=== PATIENT | female | born 1945 | race Caucasian/White ===

== ENCOUNTER 2023-01-13 15:23 | Inpatient (IN) | payer OTHER ==
[2023-01-13] MEDS ORDERED: SODIUM CHLORIDE 1,000 ML IV STA ×2 (16:05→18:13)
[2023-01-13] MEDS ORDERED: ACETAMINOPHEN 1000 MG/100 ML BAG IVPB ONE ×2 (16:18→22:15)
[2023-01-13] MEDS ORDERED: ACETAMINOPHEN INJECTION 100 ML IVPB ONE ×2 (16:26→22:38)
[2023-01-13 16:50] LABS: VENOUS BASE EXCESS -1.4 mmol/L (-2-2); VENOUS O2 SATURATION 16.6 % (70-80); VENOUS PCO2 35.8 mmHg (38-52); VENOUS PH 7.417 (7.310-7.410)
[2023-01-13 17:01] LABS: EOS % 0.1 % (0-4.5); HEMATOCRIT 40.3 % (32.4-45.2); HEMOGLOBIN 13.5 GM/dL (10.7-15.3); LYMPH % 4.7 % (8-40); MCH 27.3 pg (25.7-33.7); MCHC 33.4 g/dl (32.0-36.0); MEAN CELL VOLUME 81.9 fl (80-96); MONO % 1.6 % (3.8-10.2); NEUT % 93.6 % (42.8-82.8); RBC 4.92 M/mm3 (3.60-5.2); RDW 13.6 % (11.6-15.6); WHITE BLOOD COUNT 3.6 K/mm3 (4.0-10.0)
[2023-01-13 17:02] LABS: INR 1.04 (0.83-1.09); PROTHROMBIN TIME (PATIENT) 12.1 SEC (9.7-13.0)
[2023-01-13 17:05] LABS: ACTIVATED PTT 27.7 SECONDS (25.2-36.5)
[2023-01-13 17:13] LABS: CHLORIDE 100 mmol/L (98-107); POTASSIUM 4.2 mmol/L (3.5-5.1); SODIUM 134 mmol/L (136-145)
[2023-01-13 17:16] LABS: ALBUMIN 3.4 g/dl (3.4-5.0); ANION GAP 10 MMOL/L (8-16); BLOOD UREA NITROGEN 26.3 mg/dL (7-18); CO2 23 mmol/L (21-32); GLUCOSE,RANDOM 118 mg/dL (74-106)
[2023-01-13 17:18] LABS: CREATININE 1.4 mg/dL (0.55-1.3); SGPT/ALT 418 U/L (13-61)
[2023-01-13 17:21] LABS: BILIRUBIN,TOTAL 1.1 mg/dL (0.2-1); TOT PROT 7.3 g/dl (6.4-8.2)
[2023-01-13 17:22] LABS: ALK PHOS 79 U/L (45-117)
[2023-01-13 17:25] LABS: LACTIC ACID 2.4 mmol/L (0.4-2.0)
[2023-01-13 17:26] LABS: MEAN PLT VOLUME 10.5 fl (7.5-11.1); PLATELET COUNT 60 10^3/uL (134-434)
[2023-01-13 17:28] LABS: SGOT/AST 1063 U/L (15-37)
[2023-01-13] MEDS ORDERED: PIPERACILLIN/TAZOB 3.375 GM 3.375 GM in DEXTROSE 5%-WATER - 50 ML IVPB ONE (17:29)
[2023-01-13] MEDS ORDERED: VANCOMYCIN 1 GM in D5W (PRE-DOCKED) 1,000 MG/250 ML (RESTRICTED TO ID ONLY IVPB ONE (17:29)
[2023-01-13] MEDS ORDERED: VANCOMYCIN/WATER FOR INJ (PEG) 1,000 MG/200 ML BAG IVPB ONE (17:44)
[2023-01-13] MEDS ORDERED: PIPERACILLIN/TAZOB 3.375 GM 3.375 GM/50 ML BAG IVPB ONE (17:44)
[2023-01-13 19:37] LABS: EPI CELLS 17 /uL (0-25.1); HYALINE CASTS 1 /uL (0-3.1); URINE APPEARANCE CLOUDY; URINE BACTERIA 5279 /uL (0-1359); URINE BILIRUBIN 1+ (NEGATIVE); URINE COLOR DK YELLOW; URINE GLUCOSE (UA) NEGATIVE (NEGATIVE); URINE KETONE 1+ (NEGATIVE); URINE LEUK ESTERASE TRACE (NEGATIVE); URINE NITRITE POSITIVE (NEGATIVE); URINE PROTEIN 3+ (NEGATIVE); URINE WBC 41 /uL (0-25.8); YEAST REVIEW (NEGATIVE)
[2023-01-13 20:18] LABS: URINE RBC 23.6 /uL (0-23.9)
[2023-01-13] MEDS ORDERED: LACTATED RINGERS SOLUTION 1000 ML INFUS.BAG IV ONE (22:06)
[2023-01-13 22:54] LABS: CHLORIDE 105 mmol/L (98-107); POTASSIUM 3.2 mmol/L (3.5-5.1); SODIUM 138 mmol/L (136-145)
[2023-01-13 23:44] LABS: ALBUMIN 2.8 g/dl (3.4-5.0); ALK PHOS 65 U/L (45-117); ANION GAP 13 MMOL/L (8-16); BLOOD UREA NITROGEN 25.9 mg/dL (7-18); CALCIUM 7.7 mg/dL (8.5-10.1); CO2 20 mmol/L (21-32); CREATININE 1.3 mg/dL (0.55-1.3); GLUCOSE,RANDOM 106 mg/dL (74-106); SGOT/AST 952 U/L (15-37); SGPT/ALT 346 U/L (13-61)
[2023-01-14] MEDS ORDERED: ACETAMINOPHEN 1000 MG/100 ML BAG IVPB PRN (00:13)
[2023-01-14] MEDS ORDERED: SODIUM CHLORIDE 1,000 ML IV SCH ×2 (00:15→01:07)
[2023-01-14] MEDS: KCL 10 MEQ IVPB 10 MEQ/100 ML INFUS.BAG IVPB SCH ×2 (02:53→04:36)
[2023-01-14] MEDS ORDERED: traMADol HCL 50 MG TABLET PO PRN (04:49)
[2023-01-14] MEDS ORDERED: PIPERACILLIN/TAZOB 3.375 GM 3.375 GM in DEXTROSE 5%-WATER - 50 ML IVPB ONE (09:04)
[2023-01-14] MEDS ORDERED: VANCOMYCIN 1 GM/200 ML PREMIX BAG (RESTRICTED TO ID ONLY) IVPB ONE (09:05)
[2023-01-14] MEDS: ACETAMINOPHEN 325 MG TABLET (FP) PO PRN (09:11)
[2023-01-14] MEDS ORDERED: LACTATED RINGERS SOLUTION 1000 ML INFUS.BAG IV ONE (09:15)
[2023-01-14] MEDS ORDERED: CEFTRIAXONE 1 GM in DEXTROSE 5%-WATER - 50 ML IVPB SCH (10:00)
[2023-01-14] MEDS ORDERED: ENOXAPARIN NA (PORCINE) 40 MG/0.4 ML DISP.SYRIN SQ SCH (10:00)
[2023-01-14 10:22] LABS: CHLORIDE 109 mmol/L (98-107); POTASSIUM 3.9 mmol/L (3.5-5.1); SODIUM 139 mmol/L (136-145)
[2023-01-14 10:26] LABS: CALCIUM 8.3 mg/dL (8.5-10.1)
[2023-01-14 10:28] LABS: ALBUMIN 2.6 g/dl (3.4-5.0); ANION GAP 12 MMOL/L (8-16); BLOOD UREA NITROGEN 22.4 mg/dL (7-18); CO2 18 mmol/L (21-32); GLUCOSE,RANDOM 79 mg/dL (74-106)
[2023-01-14 10:29] LABS: SGPT/ALT 341 U/L (13-61)
[2023-01-14 10:30] LABS: ALK PHOS 75 U/L (45-117); BILIRUBIN,TOTAL 1.3 mg/dL (0.2-1); SGOT/AST 973 U/L (15-37); TOT PROT 5.8 g/dl (6.4-8.2)
[2023-01-14] MEDS ORDERED: IBUPROFEN 600 MG TABLET (FP) PO ONE (10:54)
[2023-01-14] MEDS: LACTATED RINGERS SOLUTION 1,000 ML/1,000 ML INFUS.BAG IV SCH (11:41)
[2023-01-14 12:08] LABS: BASO % 0.1 % (0-2.0); EOS % 0.8 % (0-4.5); HEMATOCRIT 33.3 % (32.4-45.2); HEMOGLOBIN 10.9 GM/dL (10.7-15.3); LYMPH % 6.8 % (8-40); MCH 26.9 pg (25.7-33.7); MCHC 32.9 g/dl (32.0-36.0); MEAN PLT VOLUME 10.2 fl (7.5-11.1); MONO % 1.8 % (3.8-10.2); NEUT % 90.5 % (42.8-82.8); RBC 4.06 M/mm3 (3.60-5.2); RDW 13.7 % (11.6-15.6)
[2023-01-14 12:22] LABS: WHITE BLOOD COUNT 1.8 K/mm3 (4.0-10.0)
[2023-01-14 12:23] LABS: PLATELET COUNT 32 10^3/uL (134-434)
[2023-01-14] MEDS: DOXYCYCLINE INJECTION 100 MG in DEXTROSE 5%-WATER 100 ML IVPB SCH ×2 (13:13→21:21)
[2023-01-14 13:23] LABS: ANISOCYTOSIS 0; HELMET CELLS 0; HOWELL-JOLLY BODIES 0; MACROCYTOSIS 0; OVALOCYTE 0; ROULEAU 0; SICKELED CELLS 0; TARGET CELLS 0; TEAR DROP CELLS 0; TOXIC GRANULATION 0
[2023-01-14 13:46] LABS: INR 1.25 (0.83-1.09); PROTHROMBIN TIME (PATIENT) 14.5 SEC (9.7-13.0)
[2023-01-14 13:48] LABS: ACTIVATED PTT 29.5 SECONDS (25.2-36.5)
[2023-01-14 14:49] LABS: LDH > 1000 U/L (84-246)
[2023-01-14] MEDS: PIPERACILLIN/TAZOB 4.5 GM 4.5 GM in DEXTROSE 5%-WATER 100 ML IVPB SCH (17:59)
[2023-01-15] MEDS: VANCOMYCIN/WATER FOR INJ (PEG) 1,000 MG/200 ML BAG IVPB SCH ×2 (00:44→10:54)
[2023-01-15] MEDS: PIPERACILLIN/TAZOB 4.5 GM 4.5 GM in DEXTROSE 5%-WATER 100 ML IVPB SCH ×3 (03:10→17:12)
[2023-01-15] MEDS: KCL 10 MEQ IVPB 10 MEQ/100 ML INFUS.BAG IVPB SCH (08:01)
[2023-01-15] MEDS ORDERED: MELATONIN 5 MG TABLETS PO PRN (08:40)
[2023-01-15 08:57] LABS: HEMATOCRIT 37.8 % (32.4-45.2); HEMOGLOBIN 12.3 GM/dL (10.7-15.3); MCH 26.8 pg (25.7-33.7); MCHC 32.6 g/dl (32.0-36.0); MEAN CELL VOLUME 82.3 fl (80-96); MEAN PLT VOLUME 11.6 fl (7.5-11.1); RBC 4.59 M/mm3 (3.60-5.2); WHITE BLOOD COUNT 3.4 K/mm3 (4.0-10.0)
[2023-01-15 09:18] LABS: CHLORIDE 112 mmol/L (98-107); POTASSIUM 3.9 mmol/L (3.5-5.1); SODIUM 141 mmol/L (136-145)
[2023-01-15 09:22] LABS: ANION GAP 11 MMOL/L (8-16); CALCIUM 8.3 mg/dL (8.5-10.1); CO2 19 mmol/L (21-32); MAGNESIUM 1.8 mg/dL (1.8-2.4)
[2023-01-15 09:23] LABS: GLUCOSE,RANDOM 97 mg/dL (74-106)
[2023-01-15 09:25] LABS: BILIRUBIN,DIRECT 0.8 mg/dL (0.0-0.2); BLOOD UREA NITROGEN 24.4 mg/dL (7-18); CREATININE 0.9 mg/dL (0.55-1.3); PHOSPHOROUS 1.9 mg/dL (2.5-4.9); SGOT/AST 733 U/L (15-37); SGPT/ALT 272 U/L (13-61)
[2023-01-15 09:29] LABS: BILIRUBIN,TOTAL 1.2 mg/dL (0.2-1); TOT PROT 5.2 g/dl (6.4-8.2)
[2023-01-15 09:32] LABS: ALK PHOS 88 U/L (45-117)
[2023-01-15] MEDS: DOXYCYCLINE INJECTION 100 MG in DEXTROSE 5%-WATER 100 ML IVPB SCH ×2 (09:48→22:40)
[2023-01-15 10:30] LABS: ANISOCYTOSIS 0; HELMET CELLS 0; HOWELL-JOLLY BODIES 0; MACROCYTOSIS 0; OVALOCYTE 0; ROULEAU 0; SICKELED CELLS 0; TARGET CELLS 0; TEAR DROP CELLS 0; TOXIC GRANULATION 0
[2023-01-15 11:03] LABS: PLATELET COUNT 26 10^3/uL (134-434)
[2023-01-15] MEDS: LACTATED RINGERS SOLUTION 1,000 ML/1,000 ML INFUS.BAG IV SCH ×2 (11:30→13:53)
[2023-01-15] MEDS ORDERED: NAPH,MB-DB/K PH,MBDB POWDER PACKET PO ONE (14:36)
[2023-01-15] MEDS ORDERED: FUROSEMIDE 40 MG/4 ML INJECTABLE VIAL IVPUSH ONE (22:23)
[2023-01-15 22:31] LABS: ALLENS TEST POSITIVE; ARTERIAL BLD GAS O2 SATURATION 91.6 % (95-98); ARTERIAL BLOOD GAS BASE EXCESS -6.5 mmol/L (-2-2); ARTERIAL BLOOD GAS PO2 63.7 mmHg (80-100)
[2023-01-15 23:45] LABS: N-TERMINAL BNP 4253.8 pg/ml (5-450)
[2023-01-16] MEDS: PIPERACILLIN/TAZOB 4.5 GM 4.5 GM in DEXTROSE 5%-WATER 100 ML IVPB SCH ×2 (03:00→09:32)
[2023-01-16] MEDS ORDERED: FUROSEMIDE 40 MG/4 ML INJECTABLE VIAL IVPUSH ONE ×2 (04:00→12:52)
[2023-01-16 09:21] LABS: CHLORIDE 104 mmol/L (98-107); SODIUM 142 mmol/L (136-145)
[2023-01-16 09:22] LABS: HEMATOCRIT 37.1 % (32.4-45.2); HEMOGLOBIN 12.6 GM/dL (10.7-15.3); MCH 27.1 pg (25.7-33.7); MCHC 33.9 g/dl (32.0-36.0); MEAN PLT VOLUME 11.6 fl (7.5-11.1); RBC 4.64 M/mm3 (3.60-5.2); RDW 14.4 % (11.6-15.6); WHITE BLOOD COUNT 8.1 K/mm3 (4.0-10.0)
[2023-01-16 09:27] LABS: ALBUMIN 2.2 g/dl (3.4-5.0)
[2023-01-16 09:28] LABS: CALCIUM 8.4 mg/dL (8.5-10.1)
[2023-01-16 09:29] LABS: BLOOD UREA NITROGEN 27.3 mg/dL (7-18); CO2 24 mmol/L (21-32); GLUCOSE,RANDOM 135 mg/dL (74-106); MAGNESIUM 1.7 mg/dL (1.8-2.4)
[2023-01-16 09:33] LABS: ALK PHOS 101 U/L (45-117); CREATININE 1.1 mg/dL (0.55-1.3); SGOT/AST 665 U/L (15-37); TOT PROT 5.4 g/dl (6.4-8.2)
[2023-01-16 09:34] LABS: N-TERMINAL BNP 21475.7 pg/ml (5-450)
[2023-01-16 09:35] LABS: PHOSPHOROUS 3.3 mg/dL (2.5-4.9); SGPT/ALT 258 U/L (13-61)
[2023-01-16 09:37] LABS: BILIRUBIN,TOTAL 1.2 mg/dL (0.2-1)
[2023-01-16 09:42] LABS: ANION GAP 14 MMOL/L (8-16); POTASSIUM 2.7 mmol/L (3.5-5.1)
[2023-01-16] MEDS ORDERED: MAGNESIUM SULF 50% (8.12 MEQ/2 ML-1 GM VIAL) IVPB ONE (10:04)
[2023-01-16] MEDS ORDERED: POTASSIUM CHLORIDE ORAL LIQUID 20 MEQ/15 ML PO ONE ×2 (10:05→13:00)
[2023-01-16] MEDS: DOXYCYCLINE INJECTION 100 MG in DEXTROSE 5%-WATER 100 ML IVPB SCH ×2 (10:35→21:14)
[2023-01-16 12:34] LABS: ANISOCYTOSIS 2+; MACROCYTOSIS 2+; OVALOCYTE 2+; TEAR DROP CELLS 1+
[2023-01-16 12:35] LABS: PLATELET ESTIMATE MOD DECREASED
[2023-01-16] MEDS ORDERED: LACTATED RINGERS SOLUTION 1,000 ML/1,000 ML INFUS.BAG IV SCH ×2 (12:45)
[2023-01-16 14:59] LABS: PLATELET COUNT 26 10^3/uL (134-434)
[2023-01-16] MEDS: CEFAZOLIN SODIUM 2 GM in DEXTROSE 5%-WATER 100 ML IVPB SCH (17:50)
[2023-01-17] MEDS: ACETAMINOPHEN 325 MG TABLET (FP) PO PRN (00:24)
[2023-01-17] MEDS: CEFAZOLIN SODIUM 2 GM in DEXTROSE 5%-WATER 100 ML IVPB SCH ×3 (01:03→17:16)
[2023-01-17 04:32] LABS: ARTERIAL BLD GAS O2 SATURATION 95.8 % (95-98); ARTERIAL BLOOD GAS BASE EXCESS 2.2 mmol/L (-2-2); ARTERIAL BLOOD GAS PO2 69.8 mmHg (80-100); ARTERIAL BLOOD GAS pH 7.526 (7.350-7.450)
[2023-01-17 04:37] LABS: ALLENS TEST POSITIVE
[2023-01-17] MEDS: MUPIROCIN 2% TOPICAL OINTMENT FOR DECOLONIZATION NS SCH ×2 (10:27→21:52)
[2023-01-17] MEDS: DOXYCYCLINE INJECTION 100 MG in DEXTROSE 5%-WATER 100 ML IVPB SCH ×2 (10:27→21:51)
[2023-01-17] MEDS ORDERED: SODIUM CHLORIDE 250 ML IV STA ×2 (14:49→16:45)
[2023-01-17] MEDS ORDERED: PANTOPRAZOLE SODIUM 40 MG VIAL IVPUSH ONE (15:58)
[2023-01-17] MEDS ORDERED: PANTOPRAZOLE SODIUM 80 MG in SODIUM CHLORIDE 100 ML IVPB SCH (16:00)
[2023-01-17 16:43] LABS: BASO % 0.3 % (0-2.0); EOS % 0.3 % (0-4.5); HEMOGLOBIN 7.2 GM/dL (10.7-15.3); LYMPH % 31.1 % (8-40); MCH 26.1 pg (25.7-33.7); MCHC 32.9 g/dl (32.0-36.0); MEAN CELL VOLUME 79.3 fl (80-96); MEAN PLT VOLUME 12.2 fl (7.5-11.1); MONO % 7.8 % (3.8-10.2); NEUT % 60.5 % (42.8-82.8); RBC 2.78 M/mm3 (3.60-5.2); RDW 14.3 % (11.6-15.6); WHITE BLOOD COUNT 11.4 K/mm3 (4.0-10.0)
[2023-01-17 16:56] LABS: INR 0.96 (0.83-1.09); PLATELET COUNT 32 10^3/uL (134-434); PROTHROMBIN TIME (PATIENT) 11.1 SEC (9.7-13.0)
[2023-01-17 16:59] LABS: ACTIVATED PTT 21.8 SECONDS (25.2-36.5)
[2023-01-17 17:17] LABS: ALBUMIN 1.9 g/dl (3.4-5.0); CALCIUM 7.8 mg/dL (8.5-10.1)
[2023-01-17 17:18] LABS: BLOOD UREA NITROGEN 49.8 mg/dL (7-18); MAGNESIUM 2.1 mg/dL (1.8-2.4)
[2023-01-17 17:20] LABS: PHOSPHOROUS 2.1 mg/dL (2.5-4.9)
[2023-01-17 17:21] LABS: CREATININE 1.1 mg/dL (0.55-1.3)
[2023-01-17 17:22] LABS: BILIRUBIN,TOTAL 0.8 mg/dL (0.2-1); TOT PROT 4.7 g/dl (6.4-8.2)
[2023-01-17] MEDS ORDERED: POTASSIUM CHLORIDE ORAL LIQUID 20 MEQ/15 ML PO ONE (17:22)
[2023-01-17] MEDS: PANTOPRAZOLE SODIUM 160 MG in SODIUM CHLORIDE 290 ML IVPB SCH (19:39)
[2023-01-17] MEDS: CHLORHEXIDINE GLUCONATE 4% CLEANSER FOR DECOLONIZATION TP SCH (21:51)
[2023-01-18] MEDS: CEFAZOLIN SODIUM 2 GM in DEXTROSE 5%-WATER 100 ML IVPB SCH ×3 (02:14→18:55)
[2023-01-18 04:20] LABS: BASO % 0.5 % (0-2.0); EOS % 0.3 % (0-4.5); HEMATOCRIT 23.8 % (32.4-45.2); LYMPH % 36.4 % (8-40); MCH 27.5 pg (25.7-33.7); MCHC 33.6 g/dl (32.0-36.0); MEAN CELL VOLUME 81.8 fl (80-96); MEAN PLT VOLUME 9.7 fl (7.5-11.1); MONO % 6.1 % (3.8-10.2); NEUT % 56.7 % (42.8-82.8); PLATELET COUNT 106 10^3/uL (134-434); RBC 2.91 M/mm3 (3.60-5.2); WHITE BLOOD COUNT 12.5 K/mm3 (4.0-10.0)
[2023-01-18 04:41] LABS: POTASSIUM 3.6 mmol/L (3.5-5.1)
[2023-01-18 04:43] LABS: CALCIUM 8.3 mg/dL (8.5-10.1)
[2023-01-18 04:44] LABS: ALBUMIN 2.1 g/dl (3.4-5.0); BLOOD UREA NITROGEN 38.8 mg/dL (7-18)
[2023-01-18 04:46] LABS: PHOSPHOROUS 1.8 mg/dL (2.5-4.9)
[2023-01-18 04:48] LABS: BILIRUBIN,TOTAL 0.8 mg/dL (0.2-1)
[2023-01-18] MEDS ORDERED: SODIUM CHLORIDE 250 ML IV STA (08:39)
[2023-01-18] MEDS ORDERED: POTASSIUM PHOSPHATE 30 MM in SODIUM CHLORIDE 250 ML IVPB ONE (09:00)
[2023-01-18] MEDS: LACTOBACILLUS ACIDOPHILUS 1 TABLET PO SCH (10:45)
[2023-01-18] MEDS: DOXYCYCLINE INJECTION 100 MG in DEXTROSE 5%-WATER 100 ML IVPB SCH ×2 (10:45→22:01)
[2023-01-18] MEDS: MUPIROCIN 2% TOPICAL OINTMENT FOR DECOLONIZATION NS SCH ×2 (10:46→22:02)
[2023-01-18] MEDS: ASCORBIC ACID 500 MG TABLET (FP) PO SCH ×2 (10:46→21:58)
[2023-01-18 15:06] LABS: EOS % 0.3 % (0-4.5); HEMATOCRIT 22.6 % (32.4-45.2); HEMOGLOBIN 7.4 GM/dL (10.7-15.3); LYMPH % 49.5 % (8-40); MCH 27.3 pg (25.7-33.7); MCHC 32.7 g/dl (32.0-36.0); MEAN CELL VOLUME 83.6 fl (80-96); MEAN PLT VOLUME 10.8 fl (7.5-11.1); MONO % 6.3 % (3.8-10.2); NEUT % 42.9 % (42.8-82.8); PLATELET COUNT 101 10^3/uL (134-434); RDW 14.5 % (11.6-15.6); WHITE BLOOD COUNT 14.3 K/mm3 (4.0-10.0)
[2023-01-18] MEDS: PANTOPRAZOLE SODIUM 160 MG in SODIUM CHLORIDE 290 ML IVPB SCH (15:56)
[2023-01-18] MEDS: MELATONIN 5 MG TABLETS PO PRN (21:59)
[2023-01-18] MEDS: CHLORHEXIDINE GLUCONATE 4% CLEANSER FOR DECOLONIZATION TP SCH (22:01)
[2023-01-19 00:36] LABS: HEMATOCRIT 20.2 % (32.4-45.2); MCH 27.8 pg (25.7-33.7); MCHC 33.7 g/dl (32.0-36.0); MEAN CELL VOLUME 82.5 fl (80-96); MEAN PLT VOLUME 10.3 fl (7.5-11.1); PLATELET COUNT 108 10^3/uL (134-434); RBC 2.45 M/mm3 (3.60-5.2); RDW 14.8 % (11.6-15.6); WHITE BLOOD COUNT 13.9 K/mm3 (4.0-10.0)
[2023-01-19 00:43] LABS: HEMOGLOBIN 6.8 GM/dL (10.7-15.3)
[2023-01-19] MEDS: CEFAZOLIN SODIUM 2 GM in DEXTROSE 5%-WATER 100 ML IVPB SCH ×3 (02:19→17:55)
[2023-01-19 09:29] LABS: ANISOCYTOSIS 3+; MACROCYTOSIS 0
[2023-01-19] MEDS: ASCORBIC ACID 500 MG TABLET (FP) PO SCH ×2 (10:24→21:16)
[2023-01-19] MEDS: LACTOBACILLUS ACIDOPHILUS 1 TABLET PO SCH (10:24)
[2023-01-19] MEDS: DOXYCYCLINE INJECTION 100 MG in DEXTROSE 5%-WATER 100 ML IVPB SCH ×2 (10:25→21:13)
[2023-01-19] MEDS: MUPIROCIN 2% TOPICAL OINTMENT FOR DECOLONIZATION NS SCH ×2 (10:26→21:13)
[2023-01-19] MEDS ORDERED: SODIUM CHLORIDE 250 ML IV STA (11:53)
[2023-01-19 13:16] LABS: HEMATOCRIT 26.8 % (32.4-45.2); MCH 27.4 pg (25.7-33.7); MCHC 33.6 g/dl (32.0-36.0); MEAN CELL VOLUME 81.4 fl (80-96); MEAN PLT VOLUME 10.7 fl (7.5-11.1); PLATELET COUNT 120 10^3/uL (134-434); RBC 3.29 M/mm3 (3.60-5.2); RDW 14.6 % (11.6-15.6); WHITE BLOOD COUNT 14.7 K/mm3 (4.0-10.0)
[2023-01-19 14:43] LABS: POTASSIUM 3.8 mmol/L (3.5-5.1)
[2023-01-19 14:45] LABS: CALCIUM 8.2 mg/dL (8.5-10.1)
[2023-01-19 14:46] LABS: ALBUMIN 2.2 g/dl (3.4-5.0); BLOOD UREA NITROGEN 24.6 mg/dL (7-18); MAGNESIUM 2.1 mg/dL (1.8-2.4)
[2023-01-19 14:49] LABS: CREATININE 0.8 mg/dL (0.55-1.3); PHOSPHOROUS 2.7 mg/dL (2.5-4.9)
[2023-01-19 14:50] LABS: TOT PROT 5.1 g/dl (6.4-8.2)
[2023-01-19 14:51] LABS: BILIRUBIN,TOTAL 0.6 mg/dL (0.2-1)
[2023-01-19 15:13] LABS: ANISOCYTOSIS 0; MACROCYTOSIS 0
[2023-01-19 16:04] VITALS: BMI 20.3
[2023-01-19] MEDS: PANTOPRAZOLE SODIUM 160 MG in SODIUM CHLORIDE 290 ML IVPB SCH (17:19)
[2023-01-19] MEDS: CHLORHEXIDINE GLUCONATE 4% CLEANSER FOR DECOLONIZATION TP SCH (21:13)
[2023-01-19] MEDS: MELATONIN 5 MG TABLETS PO PRN (21:19)
[2023-01-19] MEDS ORDERED: QUEtiapine FUMARATE 25 MG TABLET PO ONE (23:09)
[2023-01-20] MEDS: CEFAZOLIN SODIUM 2 GM in DEXTROSE 5%-WATER 100 ML IVPB SCH ×3 (03:52→17:27)
[2023-01-20] MEDS: LACTOBACILLUS ACIDOPHILUS 1 TABLET PO SCH (11:52)
[2023-01-20] MEDS: ASCORBIC ACID 500 MG TABLET (FP) PO SCH ×2 (11:52→21:34)
[2023-01-20] MEDS: DOXYCYCLINE INJECTION 100 MG in DEXTROSE 5%-WATER 100 ML IVPB SCH ×2 (12:38→21:34)
[2023-01-20] MEDS: SODIUM CHLORIDE 1,000 ML IV SCH (20:00)
[2023-01-20] MEDS: PANTOPRAZOLE 40 MG TABLET PO SCH (21:33)
[2023-01-20] MEDS: MELATONIN 5 MG TABLETS PO PRN ×2 (21:38→22:00)
[2023-01-20] MEDS ORDERED: MELATONIN 5 MG TABLETS PO ONE ×2 (21:50)
[2023-01-20] MEDS ORDERED: LORazepam 0.5 MG TABLET PO ONE (23:53)
[2023-01-21] MEDS: CEFAZOLIN SODIUM 2 GM in DEXTROSE 5%-WATER 100 ML IVPB SCH ×2 (01:51→09:47)
[2023-01-21] MEDS: PANTOPRAZOLE SODIUM 160 MG in SODIUM CHLORIDE 290 ML IVPB SCH (08:19)
[2023-01-21] MEDS: PANTOPRAZOLE 40 MG TABLET PO SCH ×2 (09:47→21:55)
[2023-01-21] MEDS: ASCORBIC ACID 500 MG TABLET (FP) PO SCH ×2 (09:47→21:55)
[2023-01-21] MEDS: LACTOBACILLUS ACIDOPHILUS 1 TABLET PO SCH (09:47)
[2023-01-21] MEDS: DOXYCYCLINE INJECTION 100 MG in DEXTROSE 5%-WATER 100 ML IVPB SCH ×2 (10:06→21:55)
[2023-01-21] MEDS: MELATONIN 5 MG TABLETS PO PRN (21:55)
[2023-01-21] MEDS: SODIUM CHLORIDE 1,000 ML IV SCH (21:57)
[2023-01-21] MEDS ORDERED: LORazepam 0.5 MG TABLET PO ONE (22:56)
[2023-01-22] MEDS: DOXYCYCLINE INJECTION 100 MG in DEXTROSE 5%-WATER 100 ML IVPB SCH ×2 (10:28→22:12)
[2023-01-22] MEDS: LACTOBACILLUS ACIDOPHILUS 1 TABLET PO SCH (10:29)
[2023-01-22] MEDS: PANTOPRAZOLE 40 MG TABLET PO SCH ×2 (10:29→22:12)
[2023-01-22] MEDS: ASCORBIC ACID 500 MG TABLET (FP) PO SCH ×2 (10:29→22:12)
[2023-01-22] MEDS: QUEtiapine FUMARATE 25 MG TABLET PO SCH (22:13)
[2023-01-22] MEDS: MELATONIN 5 MG TABLETS PO PRN (22:15)
[2023-01-23 08:13] LABS: BASO % 0.5 % (0-2.0); EOS % 0.3 % (0-4.5); HEMATOCRIT 25.1 % (32.4-45.2); HEMOGLOBIN 8.5 GM/dL (10.7-15.3); LYMPH % 29.1 % (8-40); MCHC 33.7 g/dl (32.0-36.0); MEAN CELL VOLUME 83.2 fl (80-96); MEAN PLT VOLUME 10.7 fl (7.5-11.1); MONO % 7.2 % (3.8-10.2); NEUT % 62.9 % (42.8-82.8); PLATELET COUNT 176 10^3/uL (134-434); RBC 3.02 M/mm3 (3.60-5.2); WHITE BLOOD COUNT 10.4 K/mm3 (4.0-10.0)
[2023-01-23 08:31] LABS: POTASSIUM 3.6 mmol/L (3.5-5.1)
[2023-01-23 08:41] LABS: ALBUMIN 1.8 g/dl (3.4-5.0); BLOOD UREA NITROGEN 13.1 mg/dL (7-18); MAGNESIUM 1.8 mg/dL (1.8-2.4)
[2023-01-23 08:43] LABS: BILIRUBIN,TOTAL 0.9 mg/dL (0.2-1)
[2023-01-23 08:44] LABS: CREATININE 0.7 mg/dL (0.55-1.3); PHOSPHOROUS 2.6 mg/dL (2.5-4.9)
[2023-01-23] MEDS: PANTOPRAZOLE 40 MG TABLET PO SCH ×2 (09:31→22:19)
[2023-01-23] MEDS: LACTOBACILLUS ACIDOPHILUS 1 TABLET PO SCH (09:31)
[2023-01-23] MEDS: THIAMINE HCL 100 MG TABLET (FP) PO SCH (09:31)
[2023-01-23] MEDS: ASCORBIC ACID 500 MG TABLET (FP) PO SCH ×2 (09:31→22:19)
[2023-01-23] MEDS: DOXYCYCLINE INJECTION 100 MG in DEXTROSE 5%-WATER 100 ML IVPB SCH (11:17)
[2023-01-23] MEDS: DOXYCYCLINE HYCLATE 100 MG CAPSULE PO SCH (17:42)
[2023-01-23] MEDS: QUEtiapine FUMARATE 25 MG TABLET PO SCH (22:19)
[2023-01-23] MEDS: MELATONIN 5 MG TABLETS PO PRN (22:19)
[2023-01-24] MEDS: ASCORBIC ACID 500 MG TABLET (FP) PO SCH ×2 (09:36→21:23)
[2023-01-24] MEDS: PANTOPRAZOLE 40 MG TABLET PO SCH ×2 (09:36→21:22)
[2023-01-24] MEDS: DOXYCYCLINE HYCLATE 100 MG CAPSULE PO SCH ×2 (09:36→17:41)
[2023-01-24] MEDS: LACTOBACILLUS ACIDOPHILUS 1 TABLET PO SCH (09:36)
[2023-01-24] MEDS: THIAMINE HCL 100 MG TABLET (FP) PO SCH (09:37)
[2023-01-24] MEDS: CARVEDILOL 3.125 MG TABLET (FP) PO SCH (21:22)
[2023-01-24] MEDS: QUEtiapine FUMARATE 25 MG TABLET PO SCH (21:23)
[2023-01-24] MEDS: DOCUSATE SODIUM 100 MG CAPSULE (FP) PO PRN (21:23)
[2023-01-24] MEDS: MELATONIN 5 MG TABLETS PO PRN (21:23)
[2023-01-25] MEDS: PANTOPRAZOLE 40 MG TABLET PO SCH ×2 (09:41→21:23)
[2023-01-25] MEDS: ASCORBIC ACID 500 MG TABLET (FP) PO SCH ×2 (09:41→21:23)
[2023-01-25] MEDS: DOXYCYCLINE HYCLATE 100 MG CAPSULE PO SCH ×2 (09:41→17:45)
[2023-01-25] MEDS: LACTOBACILLUS ACIDOPHILUS 1 TABLET PO SCH (09:41)
[2023-01-25] MEDS: THIAMINE HCL 100 MG TABLET (FP) PO SCH (09:41)
[2023-01-25] MEDS ORDERED: LISINOPRIL 5 MG TABLET PO SCH (10:00)
[2023-01-25] MEDS: CARVEDILOL 3.125 MG TABLET (FP) PO SCH ×2 (11:00→21:22)
[2023-01-25] MEDS: QUEtiapine FUMARATE 25 MG TABLET PO SCH (21:23)
[2023-01-25] MEDS: MELATONIN 5 MG TABLETS PO PRN (21:23)
[2023-01-25] MEDS: DOCUSATE SODIUM 100 MG CAPSULE (FP) PO PRN (21:23)
[2023-01-26 03:02] VITALS: RESP 18
[2023-01-26] MEDS: PANTOPRAZOLE 40 MG TABLET PO SCH (10:18)
[2023-01-26] MEDS: CARVEDILOL 3.125 MG TABLET (FP) PO SCH ×2 (10:18→10:28)
[2023-01-26] MEDS: LACTOBACILLUS ACIDOPHILUS 1 TABLET PO SCH (10:18)
[2023-01-26] MEDS: ASCORBIC ACID 500 MG TABLET (FP) PO SCH (10:18)
[2023-01-26] MEDS: THIAMINE HCL 100 MG TABLET (FP) PO SCH (10:18)
[2023-01-26] MEDS: DOXYCYCLINE HYCLATE 100 MG CAPSULE PO SCH (10:18)
[2023-01-26] MEDS ORDERED: MAGNESIUM HYDROX 2400MG/30ML ORAL SUSPENSION 30 ML CUP PO ONE (10:23)
[2023-01-26 14:45] VITALS: BP 120/75; PULSE 86; TEMP 98.5
== END 2023-01-26 15:22 | DRG 871 ==
LOC: JER 15:23 → JERBED 17:30 → J6S 01-14 02:12 → JICU 01-17 09:30 → J4W 01-19 21:48
PROVIDERS: ADMIT Internal Medicine; ATTEND Internal Medicine
PROC: 30233N1 Transfusion of Nonautologous Red Blood Cells into Peripheral Vein, Percutaneous Approach (ICD-10-PCS; principal; 2023-01-17)
PROC: 30233R1 Transfusion of Nonautologous Platelets into Peripheral Vein, Percutaneous Approach (ICD-10-PCS; 2023-01-17)
DX: A41.9 Sepsis, unspecified organism (principal); I50.21 Acute systolic (congestive) heart failure; J96.01 Acute respiratory failure with hypoxia; E87.20 Acidosis, unspecified; M62.82 Rhabdomyolysis; N17.9 Acute kidney failure, unspecified; N39.0 Urinary tract infection, site not specified; I24.8 Other forms of acute ischemic heart disease; J90 Pleural effusion, not elsewhere classified; E87.3 Alkalosis; K92.2 Gastrointestinal hemorrhage, unspecified; D62 Acute posthemorrhagic anemia; A69.20 Lyme disease, unspecified; R65.20 Severe sepsis without septic shock; D69.6 Thrombocytopenia, unspecified; R74.01 Elevation of levels of liver transaminase levels; E87.6 Hypokalemia; E03.8 Other specified hypothyroidism; R79.89 Other specified abnormal findings of blood chemistry; I25.5 Ischemic cardiomyopathy; F17.210 Nicotine dependence, cigarettes, uncomplicated; R19.7 Diarrhea, unspecified; B96.20 Unspecified Escherichia coli [E. coli] as the cause of diseases classified elsewhere
CPT/HCPCS: 0241U-QW; 36415; 36430; 36600; 71045-TC-FY; 72170-TC-FY; 76705-TC; 80048; 80053; 80076; 81003; 82272; 82436; 82550; 82553; 82570; 82803; 82930; 83010; 83605; 83615; 83735; 83880; 84100; 84132; 84133; 84300; 84439; 84443; 84484; 85025; 85045; 85379; 85384; 85610; 85730; 86308; 86618; 86704; 86803; 86850; 86880; 86900; 86901; 86922; 87040; 87086; 87186; 87207; 87340; 87517; 87635; 87798; 93005; 93010; 93306-TC; 97116-GP; 97162-GP; 99285-25; P9034; P9058